=== PATIENT | male | born 1995 | race Hispanic/Latino ===

== ENCOUNTER 2017-01-31 15:47 | Emergency (ER) | payer SELFPAY ==
[~2017-01-31] VITALS: Ht 170.2 cm; Wt 100.0 kg
[~2017-01-31 15:47] MED LIST: BACTRIM DS1 TAB PO; BACTROBAN2 % EX; CEPHALEXIN500 M1 PO; NO HOME MEDS
[2017-01-31] MEDS ORDERED: AMOXICILLIN500 MG PO (15:59)
[2017-01-31] MEDS ORDERED: MOTRIN800 MG PO (15:59)
[2017-01-31 16:05] VITALS: BP 121/60
== END 2017-01-31 16:05 | disposition home or self-care (01) | DRG 153 ==
LOC: ED 15:47
DX: H66.92 Otitis media, unspecified, left ear (principal); H92.02 Otalgia, left ear

== ENCOUNTER 2018-04-16 15:26 | Emergency (ER) | payer SELFPAY ==
[~2018-04-16] VITALS: Ht 170.2 cm; Wt 96.0 kg
[~2018-04-16 15:26] MED LIST changes: +AMOXICILLIN500 MG PO; +MOTRIN800 MG PO
[2018-04-16 17:57] VITALS: BP 128/76
== END 2018-04-16 18:03 | disposition home or self-care (01) | DRG 556 ==
LOC: ED 15:26
DX: M25.561 Pain in right knee (principal); W22.03XA Walked into furniture, initial encounter; Y93.83 Activity, rough housing and horseplay; Y92.009 Unspecified place in unspecified non-institutional (private) residence as the place of occurrence of the external cause